=== PATIENT | male | born 1995 | race Caucasian/White ===

== ENCOUNTER 2017-09-21 19:48 | Emergency (ER) | payer BC, OTHER ==
[2017-09-21] MEDS ORDERED: ALPRAZolam TAB* 0.5 MG PO ONE (20:09)
[2017-09-21] MEDS ORDERED: Ibuprofen TAB* 800 MG PO ONE (20:09)
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
[2017-09-21 22:20] VITALS: BP 138/72
--- NOTE | 2017-09-22 09:22 | RAD ---
Indication: Fell and hit RIGHT side of head. Altered mental status. Comparison: No relevant prior exams available on the [facility] PACS for comparison. Technique: Noncontrast CT vertex of skull through foramen magnum. Report: The sulci, ventricles, and basal cisterns are normal for age. Raymond matter white matter differentiation is preserved without evidence for edema. No intra or extra axial hemorrhage is detected. Unremarkable visualized orbital contents. Negative for calvarial or skull base fracture. The visualized paranasal sinuses and mastoid air spaces are clear. Negative for scalp hematoma. Suggestion of soft tissue swelling over the bridge of the nose. IMPRESSION: #. No CT evidence for traumatic brain injury or acute intracranial process. #. Suggestion of potential soft tissue swelling over the bridge of the nose; correlate with clinical assessment.
--- NOTE | 2017-09-22 09:25 | RAD ---
INDICATION: Fall. Mental status change. COMPARISON: No relevant prior exams available on the [facility] PACS for comparison. TECHNIQUE: Multidetector CT images foramen magnum to lung apices without contrast. Multiplanar reformation. REPORT: Normal vertebral alignment accounting for exam positioning without spondylolisthesis or subluxation at any level. Negative for cervical vertebral body or posterior element fracture. Negative for paravertebral hematoma. IMPRESSION: #. No CT evidence for traumatic cervical spine injury.
== END 2017-09-21 22:18 | disposition home or self-care (01) ==
LOC: ED 19:48
DX: S09.90XA Unspecified injury of head, initial encounter (principal); F41.9 Anxiety disorder, unspecified; R51 Headache; F17.210 Nicotine dependence, cigarettes, uncomplicated; W19.XXXA Unspecified fall, initial encounter; Y92.9 Unspecified place or not applicable
CPT/HCPCS: 70450; 72125; 99282; A9270-GY

== ENCOUNTER 2019-02-07 02:22 | Emergency (ER) | payer BC ==
[2019-02-07 03:26] LABS: Urine Appearance Clear; Urine Bilirubin Negative (Negative); Urine Blood Negative (Negative); Urine Color Yellow; Urine Glucose Negative (Negative); Urine Ketones Trace (Negative); Urine Nitrite Negative (Negative); Urine Protein Negative (Negative); Urine Specific Gravity 1.026 (1.010-1.030); Urine Urobilinogen Negative (Negative)
[2019-02-07 03:45] LABS: ABS Eosinophils 0.1 10^3/ul (0-0.6); ABS Lymphocytes 3.1 10^3/ul (1.0-4.8); ABS Monocytes 0.6 10^3/ul (0-0.8); ABS Neutrophils 2.7 10^3/ul (1.5-7.7); Eosinophil % 1.5 %; Hematocrit 45 % (42-52); Hemoglobin 15.4 g/dL (14.0-18.0); Lymphocyte % 47.4 %; Mean Corpuscular HGB Conc 35 g/dL (31-36); Mean Corpuscular Hemoglobin 31 pg (27-31); Mean Corpuscular Volume 90 fL (80-94); Mean Platelet Volume 7.5 fL (7.4-10.4); Nucleated Red Blood Cells % 0.1; Platelet Count 230 10^3/uL (150-450); Red Blood Count 4.96 10^6 /uL (4.18-5.48); Red Cell Distribution Width 13 % (10-15); White Blood Count 6.6 10^3/uL (3.5-10.8)
[2019-02-07 03:46] LABS: Urine Benzodiazepine Screen None Detected (None Detect); Urine Opiates Screen None Detected (None Detect)
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
[2019-02-07 04:20] LABS: ALT 18 U/L (7-52); AST 15 U/L (13-39); Albumin 4.4 g/dL (3.2-5.2); Albumin/Globulin Ratio 1.5 (1-3); Alkaline Phosphatase 43 U/L (34-104); Anion Gap 4 mmol/L (2-11); BUN/Creatinine Ratio 13.9 (8-20); Blood Urea Nitrogen 14 mg/dL (6-24); CO2 Carbon Dioxide 28 mmol/L (22-32); Calcium 9.7 mg/dL (8.6-10.3); Chloride 108 mmol/L (101-111); EGFR African American 110.8 (>60); EGFR Non-African American 91.5 (>60); Globulin 2.9 g/dL (2-4); Glucose 122 mg/dL (70-100); Potassium 3.2 mmol/L (3.5-5.0); Sodium 140 mmol/L (135-145); Total Protein 7.3 g/dL (6.4-8.9)
[2019-02-07 04:41] LABS: Acetaminophen < 15 mcg/mL; Alcohol < 10 mg/dL (<10); Salicylate < 2.50 mg/dL (<30)
[2019-02-07 04:59] LABS: TSH (Thyroid Stimulating Horm) 1.38 mcIU/mL (0.34-5.60)
--- NOTE | 2019-02-07 07:16 | ED ---
Progress - Progress Note Progress Note: This pt is a sign out to Dr. Bernal from Dr. Villa at shift change 0700 02/07/19 pending a MHE and disposition. Course/Dx - Course Course Of Treatment: This pt is a sign out to Dr. Bernal from Dr. Villa at shift change 0700 02/07/19 pending a MHE and disposition. . This patient was ablated by Dr. Alexis from psychiatry and he recommends for the patient to be discharged home with follow-up as an outpatient. Patient requested STD testing. We sent blood for HIV and GC and chlamydia. Patient will follow-up the results with the primary care physician. Patient is hemodynamically stable alert oriented 3. - Diagnoses Provider Diagnoses: Depression Discharge ED - Sign-Out/Discharge Documenting (check all that apply): Patient Departure - discharge - Discharge Plan Condition: Stable Disposition: HOME Patient Education Materials: Depression (ED) Referrals: Desirae Ware MD [Primary Care Provider] - Additional Instructions: Per completion of a mental health evaluation, you are cleared for release and do not require inpatient psychiatric hospitalization at this time. Please go to nearest emergency room or call 911 if safety concerns arise or condition worsens. Important Phone Numbers: [facility] ph:[phone] Su[facility] Crisis [facility] ph:[phone] National Suicide Prevention Lifeline ph:[phone] (9497) [facility] ph:[phone] Alcoholics Anonymous ph: [facility] ph:[phone] [place] [employer] ph:[phone] Recommendation: Follow up with [facility] on Saturday Discuss medications with Primary Care Doctor Additional Resource: [facility] - Billing Disposition and Condition Condition: STABLE Disposition: Home - Attestation Statements Document Initiated by Levibguerrero: Yes Documenting Scribe: Cinthia Crawford Provider For Whom Joan is Documenting (Include Credential): Dr. Walter Bernal MD Scribe Attestation: Cinthia Jin, scribed for Dr. Walter Bernal MD on 02/08/19 at 1854. Scribe Documentation Reviewed: Yes Provider Attestation: The documentation as recorded by the Cinthia bain accurately reflects the service I personally performed and the decisions made by me, Dr. Walter Bernal MD Status of Scribe Document: Viewed
[2019-02-07] MEDS ORDERED: Nicotine* 2MG (FRUIT FLAVOR) GUM PO PRN (09:57)
[2019-02-07] MEDS ORDERED: Nicotine PATCH 21 MG/24 HR* PATCH TRANSDERM ONE (10:01)
[2019-02-07 12:35] VITALS: BP 131/76
[2019-02-07 12:56] LABS: HIV 4th Generation Nonreactive (Nonreactive)
[2019-02-08] MEDS ORDERED: Nicotine Patch Removal NOTE FOLLOW UP SCH (06:00)
[2019-02-09 14:15] LABS: Chlamydia trachomatis NAA Negative (Negative); Neisseria gonorrhoeae (GC) NAA Negative (Negative)
== END 2019-02-07 12:34 | disposition home or self-care (01) ==
LOC: ED 02:22
DX: F32.9 Major depressive disorder, single episode, unspecified (principal); F41.9 Anxiety disorder, unspecified; F41.0 Panic disorder [episodic paroxysmal anxiety]; F17.210 Nicotine dependence, cigarettes, uncomplicated
CPT/HCPCS: 36415; 80053; 80307; 80320; 80329; 81003; 84443; 85025; 87389; 87491; 87591; 99284; A9270-GY; G0480